=== PATIENT | female | born 1980 | race African-American/Black ===

== ENCOUNTER 2017-08-13 20:26 | Emergency (ER) | payer OTHER, MEDICAID ==
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
[2017-08-13 23:26] VITALS: BP 157/88
== END 2017-08-13 23:26 | disposition home or self-care (01) ==
LOC: ER 20:26
DX: M79.642 Pain in left hand (principal); M25.562 Pain in left knee; M25.561 Pain in right knee; V89.2XXA Person injured in unspecified motor-vehicle accident, traffic, initial encounter
CPT/HCPCS: 99284

== ENCOUNTER 2018-10-14 13:57 | Emergency (ER) | payer MEDICAID, OTHER ==
[2018-10-14] MEDS ORDERED: NORMAL SALINE 1000 ML 1,000 ML IV ONE (14:11)
[2018-10-14] MEDS ORDERED: DIPHENHYDRAMINE HCL 50 MG/ML VIAL IV ONE (14:12)
[2018-10-14] MEDS ORDERED: PROCHLORPERAZINE EDISYLATE INJ 10 MG/2 ML VIAL IV ONE (14:12)
--- NOTE | 2018-10-14 14:15 | ER Document Report ---
ED Medical Screen (RME) - General Chief Complaint: Headache Stated Complaint: HEADACHE Time Seen by Provider: 10/14/18 14:11 Mode of Arrival: Ambulatory Information source: Patient Notes: Patient presents with complaints of headache and fever with chest pain off and on over the past 3 days. Patient states occasionally she feels like her heart is racing. Patient denies any sore throat nausea vomiting or urinary symptoms. Patient has been taking antipyretic medication without improvement of her symptoms. I have greeted and performed a rapid initial assessment of this patient. A comprehensive ED assessment and evaluation of the patient, analysis of test results and completion of the medical decision making process will be conducted by additional ED providers. TRAVEL OUTSIDE OF THE [place] IN LAST 30 DAYS: No - Related Data Allergies/Adverse Reactions: No Known Allergies Allergy (Verified 10/14/18 13:58) Past Medical History - Social History Chew tobacco use (# tins/day): No Frequency of alcohol use: None Drug Abuse: None Renal/ Medical History: Denies: Hx Peritoneal Dialysis - Immunizations Hx Diphtheria, Pertussis, Tetanus Vaccination: Yes Physical Exam - Vital signs Vitals: Temp Pulse Resp BP Pulse Ox 101.6 F H 102 H 20 148/85 H 98 10/14/18 13:59 10/14/18 13:59 10/14/18 13:59 10/14/18 13:59 10/14/18 13:59 - General General appearance: Appears well, Alert Notes: Nontoxic appearance, no meningismus - Neurological Neuro grossly intact: Yes Cognition: Normal Rocky Coma Scale Eye Opening: Spontaneous Didier Coma Scale Verbal: Oriented Rocky Coma Scale Motor: Obeys Commands Didier Coma Scale Total: 15 Course - Vital Signs Vital signs: Temp Pulse Resp BP Pulse Ox 101.6 F H 102 H 20 148/85 H 98 10/14/18 13:59 10/14/18 13:59 10/14/18 13:59 10/14/18 13:59 10/14/18 13:59
[2018-10-14 14:42] LABS: HEMATOCRIT 23.1 % (36.0-47.0); MEAN CORPUSCULAR HEMOGLOBIN 16.4 pg (27.0-33.4); MEAN CORPUSCULAR HGB CONC 30.7 g/dL (32.0-36.0); PLATELET COUNT 317 10^3/uL (150-450); RED BLOOD COUNT 4.31 10^6/uL (3.72-5.28); RED CELL DISTRIBUTION WIDTH 19.6 % (11.5-14.0); WHITE BLOOD COUNT 7.8 10^3/uL (4.0-10.5)
[2018-10-14 14:50] LABS: APPEARANCE,URINE SLIGHTLY-CLOUDY; BILIRUBIN,URINE NEGATIVE (NEGATIVE); COLOR,URINE YELLOW; GLUCOSE, URINE NEGATIVE (NEGATIVE); KETONES,URINE NEGATIVE (NEGATIVE); LEUKOCYTE ESTERASE,URINE SMALL (NEGATIVE); NITRITE,URINE NEGATIVE (NEGATIVE); PROTEIN,URINE 100 mg/dL (NEGATIVE); URINE SPECIFIC GRAVITY 1.012
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
[2018-10-14 14:55] LABS: MEAN CORPUSCULAR VOLUME 54 fl (80-97)
[2018-10-14 14:58] LABS: ALANINE AMINOTRANSFERASE 27 U/L (9-52); ALBUMIN 4.2 g/dL (3.5-5.0); ALKALINE PHOSPHATASE 70 U/L (38-126); ANION GAP 10 (5-19); ASPARTATE AMINO TRANSFERASE 35 U/L (14-36); BILIRUBIN,DIRECT 0.3 mg/dL (0.0-0.4); BILIRUBIN,TOTAL 0.7 mg/dL (0.2-1.3); BLOOD UREA NITROGEN 7 mg/dL (7-20); CALCIUM 9.4 mg/dL (8.4-10.2); CARBON DIOXIDE 25 mmol/L (22-30); CHLORIDE 100 mmol/L (98-107); GLUCOSE 100 mg/dL (75-110); POTASSIUM 3.8 mmol/L (3.6-5.0); SODIUM 134.6 mmol/L (137-145); TOTAL PROTEIN 8.1 g/dL (6.3-8.2)
[2018-10-14 15:00] LABS: HEMOGLOBIN 7.1 g/dL (12.0-15.5)
[2018-10-14] MEDS ORDERED: CEFTRIAXONE 1 GM/D5W RTU 1 GM/50 ML RTUPB IV ONE ×2 (15:02→17:24)
--- NOTE | 2018-10-14 15:15 | RADIOLOGY REPORT (SQ) ---
EXAM DESCRIPTION: CHEST 2 VIEWS COMPLETED DATE/TIME: 10/14/2018 2:58 pm REASON FOR STUDY: cp, fever COMPARISON: None. EXAM PARAMETERS: NUMBER OF VIEWS: two views TECHNIQUE: Digital Frontal and Lateral radiographic views of the chest acquired. RADIATION DOSE: NA LIMITATIONS: none FINDINGS: LUNGS AND PLEURA: No opacities, masses or pneumothorax. No pleural effusion. MEDIASTINUM AND HILAR STRUCTURES: No masses or contour abnormalities. HEART AND VASCULAR STRUCTURES: Heart normal size. No evidence for failure. BONES: No acute findings. HARDWARE: None in the chest. OTHER: No other significant finding. IMPRESSION: NO ACUTE RADIOGRAPHIC FINDING IN THE CHEST. TECHNICAL DOCUMENTATION: JOB ID: [id number] [employer]- All Rights Reserved Reading location - IP/workstation name: [email or web address]
[2018-10-14 15:17] LABS: ABSOLUTE LYMPHOCYTES# (MANUAL) 0.9 10^3/uL (0.5-4.7); ABSOLUTE MONOCYTES # (MANUAL) 0.3 10^3/uL (0.1-1.4); BASOPHILS % (MANUAL) 0 % (0-2); EOSINOPHILS % (MANUAL) 0 % (0-6); LYMPHOCYTES % (MANUAL) 12 % (13-45); MONOCYTES % (MANUAL) 4 % (3-13); SEGMENTED NEUTROPHILS % (MAN) 84 % (42-78); TOTAL CELLS COUNTED 100
[2018-10-14 15:20] LABS: ANISOCYTOSIS 2+; HYPOCHROMASIA 3+; OVALOCYTES SLIGHT; PLATELET COMMENT ADEQUATE; POIKILOCYTOSIS 1+; TARGET CELLS SLIGHT; TEAR DROP CELLS SLIGHT
[2018-10-14] MEDS ORDERED: KETOROLAC TROMETHAMINE INJ/PF 30 MG/1 ML SDV IV ONE (16:23)
--- NOTE | 2018-10-14 16:36 | ER Document Report ---
ED General - General Chief Complaint: Headache Stated Complaint: HEADACHE Time Seen by Provider: 10/14/18 14:11 Mode of Arrival: Ambulatory TRAVEL OUTSIDE OF THE [place] IN LAST 30 DAYS: No - HPI Notes: Patient is a 37-year-old female that presents to the emergency department for ief complaint of fever and headache. Patient states that 3 days ago she started having a fever. She states the following morning she began having a headache. She describes it as a throbbing pounding sensation across her forehead. She has tried Tylenol and ibuprofen and states that that does improve the fever but the headache does not improve with medication. She has some increased pain with movement and feels slightly better when she is lying still. She denies any neck stiffness or pain in her neck. Patient does report some suprapubic abdominal discomfort and nausea as well but denies dysuria and urinary frequency. She denies vomiting and diarrhea. 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 She denies any known exposure to meningitis. She denies sinus congestion and cough. Patient began current menstrual cycle yesterday. Past Medical History: Iron deficiency anemia, hypertension Past Surgical History: Negative Social History: Denies drugs alcohol and tobacco Family History: Reviewed and noncontributory for presenting illness Allergies: Reviewed, see documented allergy list. REVIEW OF SYSTEMS: CONSTITUTIONAL : fever chills No diaphoresis No recent illness EENT: No vision changes No congestion No sore throat CARDIOVASCULAR: No chest pain No palpitations RESPIRATORY: No shortness of breath No cough No difficulty breathing GASTROINTESTINAL: abdominal pain nausea No vomiting No diarrhea GENITOURINARY: No dysuria No hematuria No difficulty urinating MUSCULOSKELETAL: No back pain No leg pain No arm pain SKIN: No rashes No lesions LYMPHATIC: No swollen, enlarged glands. NEUROLOGICAL: No lightheadedness headache No weakness No paresthesias PSYCHIATRIC: No anxiety No depression PHYSICAL EXAMINATION: Vital signs reviewed, nursing noted reviewed. GENERAL: Well-appearing, well-nourished and in no acute distress. HEAD: atraumatic, normocephalic. EYES: Eyes appear normal, extraocular movements intact, sclera anicteric, conjunctiva are pale ENT: nares patent, oropharynx clear without exudates. Moist mucous membranes. NECK:Positive jolt sign, No paraspinal or midline cervical tenderness. Normal range of motion, supple without lymphadenopathy LUNGS: Breath sounds clear to auscultation bilaterally and equal. No wheezes rales or rhonchi. HEART: Tachycardic rate and regular rhythm without murmurs ABDOMEN: Soft, mild suprapubic tenderness, normoactive bowel sounds. No rebound, guarding, or rigidity. No masses appreciated. EXTREMITIES: Nontender, good range of motion, no pitting or edema. NEUROLOGICAL: No focal neurological deficits. Moves all extremities spontaneously Motor and sensory grossly intact on exam. PSYCH: Normal mood, normal affect. SKIN: Warm, Dry, normal turgor, pale - Related Data Allergies/Adverse Reactions: No Known Allergies Allergy (Verified 10/14/18 13:58) Past Medical History - General Information source: Patient - Social History Smoking Status: Unknown if Ever Smoked Chew tobacco use (# tins/day): No Frequency of alcohol use: None Drug Abuse: None Family History: Reviewed & Not Pertinent Patient has suicidal ideation: No Patient has homicidal ideation: No Renal/ Medical History: Denies: Hx Peritoneal Dialysis - Immunizations Hx Diphtheria, Pertussis, Tetanus Vaccination: Yes Physical Exam - Vital signs Vitals: Temp Pulse Resp BP Pulse Ox 101.6 F H 102 H 20 148/85 H 98 10/14/18 13:59 10/14/18 13:59 10/14/18 13:59 10/14/18 13:59 10/14/18 13:59 Course - Re-evaluation Re-evalutation: 10/14/18 16:54 Vitals reviewed. Nursing notes reviewed. Patient presented febrile and tac hycardic. She does have a urinary tract infection. Her lactate is normal and she has no leukocytosis. She does have a slight left shift. Patient has a history of iron deficiency anemia and has been noncompliant with her iron supplementation. She states that the last time she had her hemoglobin checked was about a year ago in the health department told her that they were surprised she could walk-in with how low her levels were. She denies history of needing blood transfusion in the past. She is on her menstrual cycle which she states is heavy and began yesterday but denies any other bleeding including bloody stools. Patient received IV fluids, Benadryl and Compazine in triage and denies change in symptoms. 10/14/18 18:04 Patient was reevaluated after Toradol. She has now completed her fluids and states she feels significantly better. She appears more perky. Her headache is reportedly completely resolved. She is able to move her neck through full range of motion and now has a negative jolt sign. Patient does have acute urinary tract infection which is likely the cause of her fever and symptoms. With her headache being completely resolved at this point I am not highly suspicious for meningitis. She did receive Rocephin and vancomycin in the emergency room while being evaluated. Patient will be started on antibiotics for her urinary tract infection at home. She will begin taking iron supplementation for her acute iron deficiency anemia. I do not feel blood transfusion is indicated given her hemodynamics and the chronicity of her anemia. Patient will be referred to primary care for follow-up and told to have a repeat hemoglobin in the next week. She will return to the emergency room if her headache returns. At this point patient is stable for discharge. Laboratory 10/14/18 10/14/18 10/14/18 14:27 14:27 14:27 WBC 7.8 RBC 4.31 Hgb 7.1 L Hct 23.1 L MCV 54 L MCH 16.4 L MCHC 30.7 L RDW 19.6 H Plt Count 317 Total Counted 100 Seg Neutrophils % Not Reportable Seg Neuts % (Manual) 84 H Lymphocytes % Not Reportable Lymphocytes % (Manual) 12 L Monocytes % Not Reportable Monocytes % (Manual) 4 Eosinophils % Not Reportable Eosinophils % (Manual) 0 Basophils % Not Reportable Basophils % (Manual) 0 Absolute Neutrophils Not Reportable Abs Neuts (Manual) 6.6 Absolute Lymphocytes Not Reportable Abs Lymphs (Manual) 0.9 Absolute Monocytes Not Reportable Abs Monocytes (Manual) 0.3 Absolute Eosinophils Not Reportable Absolute Eos (Manual) 0.0 Absolute Basophils Not Reportable Abs Basophils (Manual) 0.0 Platelet Comment ADEQUATE Hypochromasia 3+ Poikilocytosis 1+ Anisocytosis 2+ Microcytosis 4+ Target Cells SLIGHT Tear Drop Cells SLIGHT Ovalocytes SLIGHT Sodium 134.6 L Potassium 3.8 Chloride 100 Carbon Dioxide 25 Anion Gap 10 BUN 7 Creatinine 0.79 Est GFR ( Amer) > 60 Est GFR (Non-Af Amer) > 60 Glucose 100 Lactic Acid 1.1 Calcium 9.4 Total Bilirubin 0.7 Direct Bilirubin 0.3 Neonat Total Bilirubin Not Reportable Neonat Direct Bilirubin Not Reportable Neonat Indirect Bili Not Reportable AST 35 ALT 27 Alkaline Phosphatase 70 Troponin I Total Protein 8.1 Albumin 4.2 Urine Color Urine Appearance Urine pH Ur Specific [place] Urine Protein Urine Glucose (UA) Urine Ketones Urine Blood Urine Nitrite Urine Bilirubin Urine Urobilinogen Ur Leukocyte Esterase Urine WBC (Auto) Urine RBC (Auto) Urine Bacteria (Auto) Squamous Epi Cells Auto Urine Mucus (Auto) Urine Ascorbic Acid 10/14/18 10/14/18 14:27 14:27 WBC RBC Hgb Hct MCV MCH MCHC RDW Plt Count Total Counted Seg Neutrophils % Seg Neuts % (Manual) Lymphocytes % Lymphocytes % (Manual) Monocytes % Monocytes % (Manual) Eosinophils % Eosinophils % (Manual) Basophils % Basophils % (Manual) Absolute Neutrophils Abs Neuts (Manual) Absolute Lymphocytes Abs Lymphs (Manual) Absolute Monocytes Abs Monocytes (Manual) Absolute Eosinophils Absolute Eos (Manual) Absolute Basophils Abs Basophils (Manual) Platelet Comment Hypochromasia Poikilocytosis Anisocytosis Microcytosis Target Cells Tear Drop Cells Ovalocytes Sodium Potassium Chloride Carbon Dioxide Anion Gap BUN Creatinine Est GFR ( Amer) Est GFR (Non-Af Amer) Glucose Lactic Acid Calcium Total Bilirubin Direct Bilirubin Neonat Total Bilirubin Neonat Direct Bilirubin Neonat Indirect Bili AST ALT Alkaline Phosphatase Troponin I < 0.012 Total Protein Albumin Urine Color YELLOW Urine Appearance SLIGHTLY-CLOUDY Urine pH 5.0 Ur Specific [place] 1.012 Urine Protein 100 H Urine Glucose (UA) NEGATIVE Urine Ketones NEGATIVE Urine Blood LARGE H Urine Nitrite NEGATIVE Urine Bilirubin NEGATIVE Urine Urobilinogen 4.0 H Ur Leukocyte Esterase SMALL H Urine WBC (Auto) 85 Urine RBC (Auto) 34 Urine Bacteria (Auto) 3+ Squamous Epi Cells Auto 1 Urine Mucus (Auto) RARE Urine Ascorbic Acid NEGATIVE Laboratory 10/14/18 10/14/18 10/14/18 14:27 14:27 14:27 WBC 7.8 RBC 4.31 Hgb 7.1 L Hct 23.1 L MCV 54 L MCH 16.4 L MCHC 30.7 L RDW 19.6 H Plt Count 317 Total Counted 100 Seg Neutrophils % Not Reportable Seg Neuts % (Manual) 84 H Lymphocytes % Not Reportable Lymphocytes % (Manual) 12 L Monocytes % Not Reportable Monocytes % (Manual) 4 Eosinophils % Not Reportable Eosinophils % (Manual) 0 Basophils % Not Reportable Basophils % (Manual) 0 Absolute Neutrophils Not Reportable Abs Neuts (Manual) 6.6 Absolute Lymphocytes Not Reportable Abs Lymphs (Manual) 0.9 Absolute Monocytes Not Reportable Abs Monocytes (Manual) 0.3 Absolute Eosinophils Not Reportable Absolute Eos (Manual) 0.0 Absolute Basophils Not Reportable Abs Basophils (Manual) 0.0 Platelet Comment ADEQUATE Hypochromasia 3+ Poikilocytosis 1+ Anisocytosis 2+ Microcytosis 4+ Target Cells SLIGHT Tear Drop Cells SLIGHT Ovalocytes SLIGHT Sodium 134.6 L Potassium 3.8 Chloride 100 Carbon Dioxide 25 Anion Gap 10 BUN 7 Creatinine 0.79 Est GFR ( Amer) > 60 Est GFR (Non-Af Amer) > 60 Glucose 100 Lactic Acid 1.1 Calcium 9.4 Total Bilirubin 0.7 Direct Bilirubin 0.3 Neonat Total Bilirubin Not Reportable Neonat Direct Bilirubin Not Reportable Neonat Indirect Bili Not Reportable AST 35 ALT 27 Alkaline Phosphatase 70 Troponin I Total Protein 8.1 Albumin 4.2 Urine Color Urine Appearance Urine pH Ur Specific [place] Urine Protein Urine Glucose (UA) Urine Ketones Urine Blood Urine Nitrite Urine Bilirubin Urine Urobilinogen Ur Leukocyte Esterase Urine WBC (Auto) Urine RBC (Auto) Urine Bacteria (Auto) Squamous Epi Cells Auto Urine Mucus (Auto) Urine Ascorbic Acid 10/14/18 10/14/18 14:27 14:27 WBC RBC Hgb Hct MCV MCH MCHC RDW Plt Count Total Counted Seg Neutrophils % Seg Neuts % (Manual) Lymphocytes % Lymphocytes % (Manual) Monocytes % Monocytes % (Manual) Eosinophils % Eosinophils % (Manual) Basophils % Basophils % (Manual) Absolute Neutrophils Abs Neuts (Manual) Absolute Lymphocytes Abs Lymphs (Manual) Absolute Monocytes Abs Monocytes (Manual) Absolute Eosinophils Absolute Eos (Manual) Absolute Basophils Abs Basophils (Manual) Platelet Comment Hypochromasia Poikilocytosis Anisocytosis Microcytosis Target Cells Tear Drop Cells Ovalocytes Sodium Potassium Chloride Carbon Dioxide Anion Gap BUN Creatinine Est GFR ( Amer) Est GFR (Non-Af Amer) Glucose Lactic Acid Calcium Total Bilirubin Direct Bilirubin Neonat Total Bilirubin Neonat Direct Bilirubin Neonat Indirect Bili AST ALT Alkaline Phosphatase Troponin I < 0.012 Total Protein Albumin Urine Color YELLOW Urine Appearance SLIGHTLY-CLOUDY Urine pH 5.0 Ur Specific [place] 1.012 Urine Protein 100 H Urine Glucose (UA) NEGATIVE Urine Ketones NEGATIVE Urine Blood LARGE H Urine Nitrite NEGATIVE Urine Bilirubin NEGATIVE Urine Urobilinogen 4.0 H Ur Leukocyte Esterase SMALL H Urine WBC (Auto) 85 Urine RBC (Auto) 34 Urine Bacteria (Auto) 3+ Squamous Epi Cells Auto 1 Urine Mucus (Auto) RARE Urine Ascorbic Acid NEGATIVE - Vital Signs Vital signs: Temp Pulse Resp BP Pulse Ox 101.6 F H 102 H 20 148/85 H 98 10/14/18 13:59 10/14/18 13:59 10/14/18 13:59 10/14/18 13:59 10/14/18 13:59 - Laboratory Result Diagrams: 10/14/18 14:27 10/14/18 14:27 Laboratory results interpreted by me: 10/14/18 10/14/18 10/14/18 14:27 14:27 14:27 Hgb 7.1 L Hct 23.1 L MCV 54 L MCH 16.4 L MCHC 30.7 L RDW 19.6 H Seg Neuts % (Manual) 84 H Lymphocytes % (Manual) 12 L Sodium 134.6 L Urine Protein 100 H Urine Blood LARGE H Urine Urobilinogen 4.0 H Ur Leukocyte Esterase SMALL H - EKG Interpretation by Me Additional EKG results interpreted by me: 10/14/18 16:35 Interpreted by myself [id number]: Normal sinus rhythm, rate 89, normal axis, no ectopy, no STEMI Discharge - Discharge Clinical Impression: Headache Qualifiers: Headache type: unspecified Headache chronicity pattern: unspecified pattern Intractability: not intractable Qualified Code(s): R51 - Headache UTI (urinary tract infection) Qualifiers: Urinary tract infection type: acute cystitis Hematuria presence: with hematuria Qualified Code(s): N30.01 - Acute cystitis with hematuria Fever Qualifiers: Fever type: due to other condition Qualified Code(s): R50.81 - Fever presenting with conditions classified elsewhere Anemia Qualifiers: Anemia type: iron deficiency Iron deficiency anemia type: other iron deficiency Qualified Code(s): D50.8 - Other iron deficiency anemias Condition: Stable Disposition: HOME, SELF-CARE Instructions: Urinary Tract Infection ([facility]), Trimethoprim-Sulfa ([facility]), Anemia, Iron Deficiency ([facility]) Additional Instructions: Please return to the emergency department if you have any worsening, or concern of your symptoms. Please return to the emergency department if you develop chest pain, difficulty breathing, severe abdominal pain, or ongoing vomiting. Please follow-up with your primary care physician in 2-3 days and any other recommended physicians. If prescribed, take all medications as directed. If you have any questions or concerns do not hesitate to return the emergency department for evaluation. If your headache returns please return to the emergency room Your hemoglobin needs to be rechecked in the next week. Begin taking the iron pills provided. Prescriptions: Ferrous Sulfate [Albafort] 325 mg PO DAILY #30 tablet Sulfamethoxazole/Trimethoprim [Bactrim Ds Tablet] 1 each PO BID #14 tablet Referrals: [facility] [Provider Group] - Follow up in 3-5 days [facility] [Provider Group] - Follow up in 3-5 days
[2018-10-14] MEDS ORDERED: CEFTRIAXONE 2 GM/D5W RTU 2 GM/50 ML RTUPB IV ONE (16:58)
[2018-10-14] MEDS ORDERED: VANCOMYCIN HCL INJ 1000 MG VIAL IV ONE (16:58)
[2018-10-14 18:31] VITALS: BP 151/88
--- NOTE | 2018-10-14 23:16 | EKG REPORT ---
SEVERITY:- NORMAL ECG - SINUS RHYTHM : Confirmed by: Romulo Stanley 14-Oct-2018 23:15:14
[2018-10-15 13:40] LABS: PATH REVIEW PATHOLOGIST REVIEWED
== END 2018-10-14 18:41 | disposition home or self-care (01) ==
LOC: ER 13:57
DX: R51 Headache (principal); N30.01 Acute cystitis with hematuria; D50.9 Iron deficiency anemia, unspecified; Z91.14 Patient's other noncompliance with medication regimen; R50.81 Fever presenting with conditions classified elsewhere; R11.0 Nausea; I10 Essential (primary) hypertension; R00.0 Tachycardia, unspecified
CPT/HCPCS: 93005; 99284; 96361; 96375; 96365; 96366; 36415; 87040; 87086; 85025; 87088; 80053; 81001; 84484; 87186; 83605; 71046; 70450; 93010; J1200; J1885; J0780; J7030; J0696